=== PATIENT | female | born 1955 | race Caucasian/White ===

== ENCOUNTER 2025-02-23 07:21 | Outpatient (CLI) | payer MEDICARE ==
[2025-02-23 08:00] LABS: Estimated GFR - POC 61.0
[2025-02-23] MEDS ORDERED: Iopamidol 370 76% 100 ML VIAL ONE ×2 (13:16)
== END 2025-02-23 07:22 | disposition home or self-care (01) ==
LOC: CT 07:21 → EDBD 08:00
PROVIDERS: ATTEND Physician Assistant Medical
DX: R10.31 Right lower quadrant pain (principal); K59.00 Constipation, unspecified; R11.0 Nausea; K38.8 Other specified diseases of appendix
CPT/HCPCS: 36415; 74177; 82565; Q9967